=== PATIENT | male | born 1985 | race Caucasian/White ===

== ENCOUNTER 2017-01-13 15:03 | Emergency (ER) | payer OTHER | END 2017-01-13 18:42 | disposition home or self-care (01) | LOC: ER 15:03 | DX: J06.9 Acute upper respiratory infection, unspecified (principal); J45.909 Unspecified asthma, uncomplicated; F11.20 Opioid dependence, uncomplicated; F17.210 Nicotine dependence, cigarettes, uncomplicated; Z79.899 Other long term (current) drug therapy | CPT/HCPCS: 71020; 87070; 87400; 87880; 99283 ==